=== PATIENT | male | born 1970 | race Caucasian/White ===

== ENCOUNTER 2016-08-05 21:27 | Emergency (ER) | payer OTHER ==
[~2016-08-05] VITALS: Ht 193 cm; Wt 120.2 kg
[2016-08-05 21:43] VITALS: BP 139/89
[2016-08-05 22:32] LABS: BASOPHILS % (AUTO) 0.3 % (0.0-2.0); DIFF TOTAL % 100 %; EOSINOPHILS # (AUTO) 0.1 /CMM (0.0-0.7); EOSINOPHILS % (AUTO) 0.9 % (0.0-6.0); HEMATOCRIT 48 % (39-51); HEMOGLOBIN 15.9 g/dL (13.5-17.5); LYMPHOCYTES # (AUTO) 1.1 /CMM (0.8-4.8); LYMPHOCYTES % (AUTO) 11.1 % (20.0-44.0); MEAN CORPUSCULAR HEMOGLOBIN 30 PG (26.0-33.0); MEAN CORPUSCULAR HGB CONC 34 g/dl (31.0-36.0); MEAN CORPUSCULAR VOLUME 89 fL (80-96); MONOCYTES # (AUTO) 0.7 /CMM (0.1-1.30); MONOCYTES % (AUTO) 7.2 % (2.0-12.0); NEUTROPHILS # (AUTO) 8.1 /CMM (1.8-8.9); NEUTROPHILS % (AUTO) 80.5 % (43.0-81.0); PLATELET COUNT (AUTO) 262 /CMM (150-450); RED BLOOD CELL COUNT(AUTO) 5.32 MIL/uL (4.5-6.0); WHITE BLOOD COUNT (AUTO) 10.1 K/uL (4.3-11.0)
[2016-08-05 22:36] LABS: ADD UA MICROSCOPIC NO; KETONES,URINE NEGATIVE (NEGATIVE); LEUKOCYTE ESTERASE ,URINE NEGATIVE (NEGATIVE)
[2016-08-05 22:42] LABS: CALCIUM, SERUM 9.5 mg/dL (8.5-10.1); CREATININE 1.3 mg/dL (0.6-1.3)
== END 2016-08-05 23:06 | disposition home or self-care (01) ==
LOC: ER 21:30
DX: M54.9 Dorsalgia, unspecified (principal); R94.4 Abnormal results of kidney function studies
CPT/HCPCS: 36415; 80048; 81001; 85025; 99284; A4606; Z7610; 81000-TC

== ENCOUNTER 2017-01-03 13:20 | Emergency (ER) | payer OTHER ==
[~2017-01-03] VITALS: Ht 193 cm; Wt 117.9 kg
[2017-01-03] MEDS ORDERED: LORAZEPAM 1 MG TABLET PO ONE (14:30)
[2017-01-03] MEDS ORDERED: ACETAMINOPHEN ES 500 MG TABLET PO ONE (14:30)
--- NOTE | 2017-01-03 14:30 | NUR ---
PT REC'D TO ER C/O HARVEY FOR 5 DYAS HAS HX PANIC ATTACKS . PT WAS BOXING AND FEEL TALITA AFTER . ATIVAN 1 MG PO AND TYENOL GIVEN PER MDORDER VSS
[2017-01-03] MEDS ORDERED: ACETAMINOPHEN ES 500 MG TABLET ONE (14:45)
[2017-01-03] MEDS ORDERED: LORAZEPAM 1 MG TABLET ONE (14:46)
[2017-01-03 15:29] LABS: BASOPHILS % (AUTO) 0.3 % (0.0-2.0); EOSINOPHILS % (AUTO) 0.5 % (0.0-6.0); HEMATOCRIT 50 % (39-51); LYMPHOCYTES # (AUTO) 0.7 /CMM (0.8-4.8); LYMPHOCYTES % (AUTO) 13.7 % (20.0-44.0); MEAN CORPUSCULAR HEMOGLOBIN 30 PG (26.0-33.0); MEAN CORPUSCULAR HGB CONC 34 g/dl (31.0-36.0); MEAN CORPUSCULAR VOLUME 89 fL (80-96); MONOCYTES # (AUTO) 0.4 /CMM (0.1-1.30); MONOCYTES % (AUTO) 6.6 % (2.0-12.0); NEUTROPHILS # (AUTO) 4.2 /CMM (1.8-8.9); NEUTROPHILS % (AUTO) 78.9 % (43.0-81.0); PLATELET COUNT (AUTO) 192 /CMM (150-450); RDW COEFFICIENT OF VARIATION 12.4 (11.5-15.0); RED BLOOD CELL COUNT(AUTO) 5.63 MIL/uL (4.5-6.0); WHITE BLOOD COUNT (AUTO) 5.3 K/uL (4.3-11.0)
[2017-01-03] MEDS ORDERED: ONDANSETRON HCL/PF - ER 4 MG/2 ML VIAL IV ONE (15:30)
[2017-01-03] MEDS ORDERED: IV NS 0.9% 1,000 ML BAG IV ONE (15:30)
--- NOTE | 2017-01-03 15:30 | NUR ---
IV STARTED 18G RT FA HEPLOCKED
[2017-01-03] MEDS: MORPHINE SULFATE INJ 2 MG/ML DISP.SYRIN IV ONE ×2 (15:35→15:45)
[2017-01-03 15:39] LABS: INR 1.12 (0.87-1.13); PROTHROMBIN TIME 11.7 SECS (9.5-12.7)
[2017-01-03 15:41] LABS: CREATININE 1.4 mg/dL (0.6-1.3); POTASSIUM 4.5 mmol/L (3.5-5.1)
[2017-01-03] MEDS ORDERED: MORPHINE SULFATE INJ 4 MG/ML DISP.SYRIN ONE (15:42)
[2017-01-03] MEDS ORDERED: ONDANSETRON HCL/PF 4 MG/2 ML VIAL ONE (15:42)
--- NOTE | 2017-01-03 15:45 | NUR ---
IV NS BOLUS GIVEN PER MD ORDER MD ORDER MS NOT GIVEN PT REFUSED ZOFRAN 4 MG IVP GIEN
--- NOTE | 2017-01-03 16:30 | NUR ---
PT SENT TO CT
--- NOTE | 2017-01-03 16:44 | NUR ---
RT RETURNED FROM C T STATED PAIN IS BETER NO MAS WANTED REFUSED
[2017-01-03] MEDS ORDERED: LIDOCAINE /MPF 1% VIAL 5 ML VIAL ONE (16:55)
--- NOTE | 2017-01-03 17:50 | NUR ---
PT SET UP FOR A LUMBER PUNCTURE WITH FLUGURVINDER
[2017-01-03 19:54] LABS: CSF GLUCOSE 55 mg/dL (40-70); CSF PROTEIN 51.4 mg/dL (15-45)
--- NOTE | 2017-01-03 20:49 | NUR ---
IV removed. Catheter intact and site benign. Pressure and 4x4 applied to site. No bleeding noted.Patient discharged to home in stable condition. Written and verbal after care instructions given. Patient verbalizes understanding of instruction. Patient is ambulatory with steady gait, no further complaints.
[2017-01-03 20:50] VITALS: BP 128/74
== END 2017-01-03 20:50 | disposition home or self-care (01) ==
LOC: ER 13:21
DX: R51 Headache (principal); F41.9 Anxiety disorder, unspecified
CPT/HCPCS: 36415; 62270 ×2; 70450; 70496; 70498; 72125; 80048; 85025; 85610; 87070; 89051; 96361; 96374; 96375; 99285; A4606; J2270; J2405 ×2; J3490; J7030 ×2; Z7610

== ENCOUNTER 2017-04-12 19:00 | Emergency (ER) | payer OTHER ==
[~2017-04-12] VITALS: Ht 193 cm; Wt 117.9 kg
[2017-04-12 19:12] VITALS: BP 119/74
[2017-04-12 19:52] LABS: BASOPHILS # (AUTO) 0.1 /CMM (0.0-0.2); BASOPHILS % (AUTO) 1.1 % (0.0-2.0); EOSINOPHILS # (AUTO) 0.1 /CMM (0.0-0.7); HEMATOCRIT 51 % (39-51); HEMOGLOBIN 17.1 g/dL (13.5-17.5); LYMPHOCYTES # (AUTO) 1.1 /CMM (0.8-4.8); LYMPHOCYTES % (AUTO) 18.8 % (20.0-44.0); MEAN CORPUSCULAR HEMOGLOBIN 30 PG (26.0-33.0); MEAN CORPUSCULAR HGB CONC 34 g/dl (31.0-36.0); MEAN CORPUSCULAR VOLUME 91 fL (80-96); MONOCYTES # (AUTO) 0.4 /CMM (0.1-1.30); MONOCYTES % (AUTO) 7.2 % (2.0-12.0); NEUTROPHILS # (AUTO) 4.2 /CMM (1.8-8.9); NEUTROPHILS % (AUTO) 70.9 % (43.0-81.0); PLATELET COUNT (AUTO) 178 /CMM (150-450); RDW COEFFICIENT OF VARIATION 12.5 (11.5-15.0); RED BLOOD CELL COUNT(AUTO) 5.63 MIL/uL (4.5-6.0); WHITE BLOOD COUNT (AUTO) 5.9 K/uL (4.3-11.0)
[2017-04-12 20:01] LABS: ALBUMIN 4.1 g/dL (3.4-5.0); BILIRUBIN,DIRECT 0.1 mg/dL (0.0-0.2); BILIRUBIN,TOTAL 0.5 mg/dL (0.2-1.0); TOTAL PROTEIN, SERUM 7.2 g/dL (6.4-8.2)
[2017-04-12 20:23] LABS: CALCIUM, SERUM 9.2 mg/dL (8.5-10.1); CREATININE 1.4 mg/dL (0.6-1.3); POTASSIUM 3.9 mmol/L (3.5-5.1)
== END 2017-04-12 20:46 | disposition home or self-care (01) ==
LOC: ER 19:02
DX: M54.5 Low back pain (principal); M79.89 Other specified soft tissue disorders
CPT/HCPCS: 36415; 80048; 80076; 82140; 83690; 85025; 99284; A4606; Z7610

== ENCOUNTER 2018-07-09 10:25 | Emergency (ER) | payer OTHER ==
[~2018-07-09] VITALS: Ht 193 cm; Wt 117.9 kg
--- NOTE | 2018-07-09 10:45 | NUR ---
BIB SELF 47 YEAR OLD MALE C/O FLU SINCE THURSDAY, FEVER, DECREASED APPETITE. SELF MEDICATED AMOXICILLIN TAKEN YESTERDAY AND 8AM TODAY. ALERT AND ORIENTED X4, BREATHING EVEN AND UNLABORED WITH NO SOB NOTED. SKIN WARM TO TOUCH AND INTACT. AWAITING TO BE SEEN BY MD.
[2018-07-09] MEDS ORDERED: ACETAMINOPHEN 325 MG TABLET ONE (10:47)
[2018-07-09] MEDS ORDERED: KETOROLAC TROMETHAMINE 15 MG/ML VIAL ONE (10:47)
[2018-07-09] MEDS ORDERED: KETOROLAC TROMETHAMINE INJ 30 MG/ML VIAL IV ONE (11:00)
[2018-07-09] MEDS ORDERED: ACETAMINOPHEN 325 MG TABLET PO ONE (11:00)
[2018-07-09] MEDS ORDERED: IV NS 0.9% 1,000 ML BAG IV ONE (11:00)
[2018-07-09 11:01] LABS: BASOPHILS % (AUTO) 0.4 % (0.0-2.0); EOSINOPHILS % (AUTO) 0.9 % (0.0-6.0); HEMATOCRIT 47 % (39-51); HEMOGLOBIN 16.1 g/dL (13.5-17.5); LYMPHOCYTES # (AUTO) 0.5 /CMM (0.8-4.8); LYMPHOCYTES % (AUTO) 14.7 % (20.0-44.0); MEAN CORPUSCULAR HGB CONC 34 g/dl (31.0-36.0); MEAN CORPUSCULAR VOLUME 94 fL (80-96); MONOCYTES # (AUTO) 0.5 /CMM (0.1-1.30); MONOCYTES % (AUTO) 13.2 % (2.0-12.0); NEUTROPHILS # (AUTO) 2.5 /CMM (1.8-8.9); NEUTROPHILS % (AUTO) 70.8 % (43.0-81.0); PLATELET COUNT (AUTO) 163 /CMM (150-450); RED BLOOD CELL COUNT(AUTO) 5.05 MIL/uL (4.5-6.0); WHITE BLOOD COUNT (AUTO) 3.5 K/uL (4.3-11.0)
[2018-07-09 11:13] LABS: CALCIUM, SERUM 8.8 mg/dL (8.5-10.1); CREATININE 1.1 mg/dL (0.6-1.3)
[2018-07-09 11:17] LABS: ALBUMIN 3.5 g/dL (3.4-5.0); BILIRUBIN,DIRECT 0.1 mg/dL (0.0-0.2); BILIRUBIN,TOTAL 0.3 mg/dL (0.2-1.0); TOTAL PROTEIN, SERUM 7.1 g/dL (6.4-8.2)
[2018-07-09 12:41] VITALS: BP 118/62
== END 2018-07-09 12:42 | disposition home or self-care (01) ==
LOC: ER 10:26
DX: R68.83 Chills (without fever) (principal); M79.10 Myalgia, unspecified site; R05 Cough; R09.89 Other specified symptoms and signs involving the circulatory and respiratory systems; R79.89 Other specified abnormal findings of blood chemistry; Z60.2 Problems related to living alone
CPT/HCPCS: 36415; 71045; 80048; 80076; 82550; 83605; 84484; 85025; 87804 ×2; 93005 ×2; 96374; 99284; A4606; J1885; J7030; Z7610; 87400

== ENCOUNTER 2019-02-18 18:04 | Emergency (ER) | payer OTHER ==
[~2019-02-18] VITALS: Ht 193 cm; Wt 117.0 kg
--- NOTE | 2019-02-18 18:15 | NUR ---
"FLANK PAIN X 9 DAYS PER PT" PT AAOX4, -SOB, NAD NOTED, VSS ,PENDING MD SILVERMAN
[2019-02-18] MEDS ORDERED: IV NS 0.9% 1,000 ML BAG IV ONE (19:00)
[2019-02-18 19:26] LABS: APPEARANCE,URINE CLEAR (CLEAR); BILIRUBIN,URINE NEGATIVE (NEGATIVE); BLOOD, URINE NEGATIVE Ery/uL (NEGATIVE); COLOR,URINE YELLOW (YELLOW); KETONES,URINE NEGATIVE (NEGATIVE); LEUKOCYTE ESTERASE ,URINE NEGATIVE (NEGATIVE); NITRITE, URINE NEGATIVE (NEGATIVE); PROTEIN,URINE NEGATIVE (NEGATIVE); UGLUCOSE NEGATIVE (NEGATIVE); UROBILINOGEN,URINE 0.2 EU/dL (0.2)
[2019-02-18 19:35] LABS: CALCIUM, SERUM 8.8 mg/dL (8.5-10.1); CREATININE 1.2 mg/dL (0.6-1.3); POTASSIUM 3.9 mmol/L (3.5-5.1)
[2019-02-18 19:38] LABS: BASOPHILS % (AUTO) 0.5 % (0.0-2.0); HEMATOCRIT 47 % (39-51); HEMOGLOBIN 16.2 g/dL (13.5-17.5); LYMPHOCYTES # (AUTO) 1.3 /CMM (0.8-4.8); LYMPHOCYTES % (AUTO) 15.7 % (20.0-44.0); MEAN CORPUSCULAR HGB CONC 34 g/dl (31.0-36.0); MEAN CORPUSCULAR VOLUME 93 fL (80-96); MONOCYTES # (AUTO) 0.6 /CMM (0.1-1.30); MONOCYTES % (AUTO) 7.9 % (2.0-12.0); NEUTROPHILS % (AUTO) 74.9 % (43.0-81.0); PLATELET COUNT (AUTO) 261 /CMM (150-450); RED BLOOD CELL COUNT(AUTO) 5.07 MIL/uL (4.5-6.0); WHITE BLOOD COUNT (AUTO) 7.9 K/uL (4.3-11.0)
[2019-02-18 19:41] LABS: BILIRUBIN,DIRECT 0.1 mg/dL (0.0-0.2); BILIRUBIN,TOTAL 0.3 mg/dL (0.2-1.0)
[2019-02-18] MEDS ORDERED: CT SWABBABLE VALVE TRANS SET 1 EA INFUS.SET MC ONE (20:10)
[2019-02-18] MEDS ORDERED: IOHEXOL-300 100 ML VIAL IV ONE (20:10)
[2019-02-18] MEDS ORDERED: IV NS 0.9% 250 ML IV ONE (20:11)
--- NOTE | 2019-02-18 20:34 | NUR ---
BACK FROM CT
[2019-02-18 21:00] VITALS: BP 122/60
== END 2019-02-18 21:37 | disposition home or self-care (01) ==
LOC: ER 18:04
DX: R10.30 Lower abdominal pain, unspecified (principal); Z60.2 Problems related to living alone
CPT/HCPCS: 36415; 74177; 76770; 80048; 80076; 81001; 83690; 85025; 99284; J7030; J7050; Q9967; 81000-TC

== ENCOUNTER 2019-04-20 16:35 | Emergency (ER) | payer OTHER ==
[~2019-04-20] VITALS: Ht 193 cm; Wt 120.2 kg
[2019-04-20] MEDS ORDERED: IBUPROFEN 400 MG TABLET ONE (17:13)
[2019-04-20] MEDS ORDERED: CYCLOBENZAPRINE 10 MG TABLET ONE (17:13)
[2019-04-20 17:23] LABS: BASOPHILS # (AUTO) 0.1 /CMM (0.0-0.2); BASOPHILS % (AUTO) 0.8 % (0.0-2.0); EOSINOPHILS % (AUTO) 0.3 % (0.0-6.0); HEMATOCRIT 50 % (39-51); HEMOGLOBIN 16.8 g/dL (13.5-17.5); LYMPHOCYTES # (AUTO) 0.6 /CMM (0.8-4.8); LYMPHOCYTES % (AUTO) 9.1 % (20.0-44.0); MEAN CORPUSCULAR HGB CONC 34 g/dl (31.0-36.0); MEAN CORPUSCULAR VOLUME 92 fL (80-96); MONOCYTES # (AUTO) 0.4 /CMM (0.1-1.30); MONOCYTES % (AUTO) 6.5 % (2.0-12.0); NEUTROPHILS # (AUTO) 5.1 /CMM (1.8-8.9); NEUTROPHILS % (AUTO) 83.3 % (43.0-81.0); PLATELET COUNT (AUTO) 197 /CMM (150-450); RED BLOOD CELL COUNT(AUTO) 5.38 MIL/uL (4.5-6.0); WHITE BLOOD COUNT (AUTO) 6.2 K/uL (4.3-11.0)
--- NOTE | 2019-04-20 17:24 | NUR ---
C/O R ARM NUMBNESS x 2 HRS, CP DULL PAIN SINCE THIS MORNING PT STATES HE AN INTENSE WORKOUT YESTERDAY. PT AAOX4, VSS. RR EVEN & UNLABORED. DENIES CP, SOB, DIZZINESS, N/V, WEAKNESS @ THIS TIME. PT SEEN & EVAL'D BY DR. ALLRED. MEDICATED ORDERED. WILL CONT TO MONITOR.
[2019-04-20] MEDS ORDERED: IBUPROFEN 400 MG TABLET PO ONE (17:30)
[2019-04-20] MEDS ORDERED: CYCLOBENZAPRINE 10 MG TABLET PO ONE (17:30)
[2019-04-20 17:31] LABS: CALCIUM, SERUM 9.2 mg/dL (8.5-10.1); CARBON DIOXIDE 28 mmol/L (21-32); CHLORIDE 101 mmol/L (98-107); CREATININE 1.1 mg/dL (0.6-1.3); GLUCOSE 117 mg/dL (74-106); POTASSIUM 3.6 mmol/L (3.5-5.1); SODIUM SERUM 136 mmol/L (136-145); UREA NITROGEN, BLOOD 23 mg/dL (7-18)
[2019-04-20 20:02] VITALS: BP 127/85
--- NOTE | 2019-04-20 20:02 | NUR ---
Patient discharged to home in stable condition. Written and verbal after care instructions given. Patient verbalizes understanding of instruction. IV removed. Catheter intact and site benign. Pressure and 4x4 applied to site. No bleeding noted.
== END 2019-04-20 20:03 | disposition home or self-care (01) ==
LOC: ER 16:35
DX: R07.89 Other chest pain (principal); Z60.2 Problems related to living alone
CPT/HCPCS: 36415; 71045-TC; 80048-TC; 84484-TC; 85025-TC; 93971-TC

== ENCOUNTER 2020-04-16 16:39 | Emergency (ER) | payer OTHER ==
[~2020-04-16] VITALS: Ht 193 cm; Wt 117.9 kg
--- NOTE | 2020-04-16 16:41 | NUR ---
called for triage not int he waiting room
--- NOTE | 2020-04-16 17:10 | NUR ---
c/o palpitations, chest tightness, and shaking x 1 week on and off per patient he injected peptide SQ a week ago. Patient a/ox4, breathing even and unlabored, no sob noted, needs attended, kept comfortable. Attached to the 3d animator.
--- NOTE | 2020-04-16 17:50 | NUR ---
LINE PATROLLER AT BEDSIDE
[2020-04-16 17:53] LABS: BASOPHILS # (AUTO) 0.1 /CMM (0.0-0.2); EOSINOPHILS % (AUTO) 1.5 % (0.0-6.0); HEMATOCRIT 51 % (39-51); HEMOGLOBIN 16.9 g/dL (13.5-17.5); LYMPHOCYTES # (AUTO) 1.1 /CMM (0.8-4.8); LYMPHOCYTES % (AUTO) 16.8 % (20.0-44.0); MEAN CORPUSCULAR HGB CONC 34 g/dl (31.0-36.0); MEAN CORPUSCULAR VOLUME 92 fL (80-96); MONOCYTES # (AUTO) 0.5 /CMM (0.1-1.30); MONOCYTES % (AUTO) 8.4 % (2.0-12.0); NEUTROPHILS # (AUTO) 4.6 /CMM (1.8-8.9); NEUTROPHILS % (AUTO) 72.3 % (43.0-81.0); PLATELET COUNT (AUTO) 241 /CMM (150-450); RED BLOOD CELL COUNT(AUTO) 5.49 MIL/uL (4.5-6.0); WHITE BLOOD COUNT (AUTO) 6.4 K/uL (4.3-11.0)
--- NOTE | 2020-04-16 17:55 | NUR ---
IV LINE ESTABLISHED, BLOOD DRAWN AND SENT TO LAB.
[2020-04-16] MEDS ORDERED: PANTOPRAZOLE 40 MG VIAL IV ONE (18:00)
--- NOTE | 2020-04-16 18:00 | NUR ---
PATIENT C/O HEARTBURN, DENIES CHEST PAIN AT THIS TIME.
[2020-04-16] MEDS ORDERED: PANTOPRAZOLE 40 MG VIAL ONE (18:01)
[2020-04-16 18:05] LABS: ALCOHOL, BLOOD < 3 mg/dL (0-0)
[2020-04-16 18:20] LABS: ALANINE AMINOTRANSFERASE 63 U/L (12-78); ALBUMIN 3.9 g/dL (3.4-5.0); ALKALINE PHOSPHATASE 71 U/L (46-116); ASPARTATE AMINOTRANSFERASE 43 U/L (15-37); BILIRUBIN,DIRECT 0.1 mg/dL (0.0-0.2); BILIRUBIN,TOTAL 0.3 mg/dL (0.2-1.0); CALCIUM, SERUM 8.9 mg/dL (8.5-10.1); CARBON DIOXIDE 32 mmol/L (21-32); CHLORIDE 100 mmol/L (98-107); CREATININE 1.1 mg/dL (0.6-1.3); GLUCOSE 82 mg/dL (74-106); POTASSIUM 4.2 mmol/L (3.5-5.1); SODIUM SERUM 136 mmol/L (136-145); TOTAL PROTEIN, SERUM 7.3 g/dL (6.4-8.2)
[2020-04-16 18:45] LABS: UREA NITROGEN, BLOOD 33 mg/dL (7-18)
[2020-04-16] MEDS: IV NS 0.9% 1,000 ML IV ONE ×2 (18:59→19:00)
[2020-04-16 19:06] LABS: THYROID STIMULATING HORMONE 1.661 uIU/mL (0.358-3.74)
--- NOTE | 2020-04-16 19:44 | NUR ---
Patient discharged to home in stable condition. Written and verbal after care instructions given. Patient verbalizes understanding of instruction. pT Ambulated out of ED. vss.
--- NOTE | 2020-04-16 19:44 | NUR ---
IV removed. Catheter intact and site benign. Pressure and 4x4 applied to site. No bleeding noted.
[2020-04-16 19:45] VITALS: BP 121/73
== END 2020-04-16 19:45 | disposition home or self-care (01) ==
LOC: ER 16:45
DX: E86.0 Dehydration (principal); T47.0X5A Adverse effect of histamine H2-receptor blockers, initial encounter; R10.13 Epigastric pain; Z60.2 Problems related to living alone; Y92.89 Other specified places as the place of occurrence of the external cause
CPT/HCPCS: 36415; 71045; 80048; 80076; 80307; 80320; 82550; 82553; 84443; 84484; 85025; 85378; 93005 ×3; 96374; 99285; C9113; J7030; G0480

== ENCOUNTER 2020-10-05 22:49 | Emergency (ER) | payer OTHER ==
[~2020-10-05] VITALS: Ht 195.6 cm; Wt 122.5 kg
--- NOTE | 2020-10-05 22:51 | NUR ---
PT BIBSELF C/O BILATERAL FLANK PAIN THAT TRAVELS TO ABD X 3 DAYS. PT AAOX4 BREATHING EVENLY AND UNLABORED. PT ATTACHED TO MONITOR AND POX. PT GIVEN BLANKET AND CALL LIGHT WITHIN REACH
[2020-10-05 23:41] LABS: BILIRUBIN,URINE Negative (NEGATIVE); COLOR,URINE YELLOW (YELLOW); LEUKOCYTE ESTERASE ,URINE Negative (NEGATIVE); NITRITE, URINE Negative (NEGATIVE); PROTEIN,URINE Negative (NEGATIVE); UGLUCOSE Negative (NEGATIVE); UROBILINOGEN,URINE 0.2 EU/dL (0.2)
--- NOTE | 2020-10-06 00:54 | NUR ---
Patient discharged to home in stable condition. Written and verbal after care instructions given. Patient verbalizes understanding of instruction. PT ambulatory with a steady gait
[2020-10-06 01:02] VITALS: BP 150/84
== END 2020-10-06 00:54 | disposition home or self-care (01) ==
LOC: ER 22:49
DX: R10.9 Unspecified abdominal pain (principal); M54.9 Dorsalgia, unspecified; G89.29 Other chronic pain; Z60.2 Problems related to living alone
CPT/HCPCS: 76770-TC

== ENCOUNTER 2020-10-29 14:58 | Emergency (ER) | payer OTHER ==
[~2020-10-29] VITALS: Ht 182.9 cm; Wt 120.2 kg
--- NOTE | 2020-10-29 14:58 | NUR ---
PT BIB SELF C/O ABDOMINAL PAIN FOR 2 WEEKS. PT IS AAOX4, NOT IN RESPIRATORY DISTRESS, V/S STABLE, KEPT RESTED AND COMFORTABLE. WILL CONTINUE TO MONITOR.
--- NOTE | 2020-10-29 15:28 | NUR ---
STOOL SPECIMEN SENT TO THE LAB.
--- NOTE | 2020-10-29 15:31 | NUR ---
AT BEDSIDE FOR EVAL.
--- NOTE | 2020-10-29 15:50 | NUR ---
Patient discharged to home in stable condition. Written and verbal after care instructions given. Patient verbalizes understanding of instruction.
[2020-10-29 15:51] VITALS: BP 121/62
[2020-10-29 17:23] LABS: OCCULT BLOOD STOOL NEGATIVE (NEGATIVE)
== END 2020-10-29 15:51 | disposition home or self-care (01) ==
LOC: ER 15:01
DX: R10.9 Unspecified abdominal pain (principal); Z60.2 Problems related to living alone
CPT/HCPCS: 82272-TC; 87045-TC; 89055

== ENCOUNTER 2021-01-31 18:01 | Emergency (ER) | payer OTHER ==
[~2021-01-31] VITALS: Ht 193 cm; Wt 117.9 kg
--- NOTE | 2021-01-31 18:49 | NUR ---
Chest pain, started thursday - a day after he had a Glutathion drip - done in a clinic; aching, radiated to his left arm. PT AAOX4, VSS. RR EVEN & UNLABORED. DENIES SOB, DIZZINESS, N/V AT THIS TIME. PT SEEN & EVAL'D BY DR. MONTOYA. PLACED ON MONITOR, SR. WILL CONT TO MONITOR.
[2021-01-31] MEDS ORDERED: IV NS 0.9% 1,000 ML IV ONE (19:00)
--- NOTE | 2021-01-31 19:25 | NUR ---
recieved report from LESLIE hairston.
[2021-01-31 19:29] LABS: CALCIUM, SERUM 8.5 mg/dL (8.5-10.1); CARBON DIOXIDE 25 mmol/L (21-32); CHLORIDE 100 mmol/L (98-107); CREATININE 1.2 mg/dL (0.6-1.3); GLUCOSE 142 mg/dL (74-106); POTASSIUM 3.9 mmol/L (3.5-5.1); SODIUM SERUM 136 mmol/L (136-145); UREA NITROGEN, BLOOD 17 mg/dL (7-18)
[2021-01-31 19:44] LABS: BASOPHILS % (AUTO) 0.5 % (0.0-2.0); EOSINOPHILS % (AUTO) 1.1 % (0.0-6.0); HEMATOCRIT 48 % (39-51); HEMOGLOBIN 16.8 g/dL (13.5-17.5); LYMPHOCYTES # (AUTO) 0.9 K/uL (0.8-4.8); MEAN CORPUSCULAR HGB CONC 35 g/dl (31.0-36.0); MEAN CORPUSCULAR VOLUME 92 fL (80-96); MONOCYTES # (AUTO) 0.5 K/uL (0.1-1.30); MONOCYTES % (AUTO) 8.2 % (2.0-12.0); NEUTROPHILS # (AUTO) 4.7 K/uL (1.8-8.9); NEUTROPHILS % (AUTO) 76.2 % (43.0-81.0); PLATELET COUNT (AUTO) 184 K/uL (150-450); RED BLOOD CELL COUNT(AUTO) 5.17 MIL/uL (4.5-6.0); WHITE BLOOD COUNT (AUTO) 6.2 K/uL (4.3-11.0)
[2021-01-31 20:26] LABS: ALBUMIN 4.1 g/dL (3.4-5.0); BILIRUBIN,DIRECT 0.1 mg/dL (0.0-0.2); BILIRUBIN,TOTAL 0.5 mg/dL (0.2-1.0); TOTAL PROTEIN, SERUM 6.9 g/dL (6.4-8.2)
[2021-01-31 21:20] VITALS: BP 134/70
--- NOTE | 2021-01-31 21:20 | NUR ---
Patient discharged to home in stable condition. Written and verbal after care instructions given. Patient verbalizes understanding of instruction.
== END 2021-01-31 21:20 | disposition home or self-care (01) ==
LOC: ER 18:05
DX: R07.89 Other chest pain (principal); R20.2 Paresthesia of skin; R19.7 Diarrhea, unspecified; Z60.2 Problems related to living alone; Z02.89 Encounter for other administrative examinations
CPT/HCPCS: 36415; 71045; 80048; 80076; 84484; 85025; 93005 ×3; 96360; 99285; J7030 ×2